=== PATIENT | female | born 1965 | race Caucasian/White ===

== ENCOUNTER 2017-02-16 07:07 | Emergency (ER) | payer SELFPAY ==
[2017-02-16 08:05] LABS: BASOPHILS 0.5 % (0.0-2.0); EOSINOPHILS 3.1 % (0-7); HEMATOCRIT 39.1 % (36.0-48.0); HEMOGLOBIN 12.6 g/dL (12-16); IMMATURE GRANULOCYTES 0.1 % (0-5); LYMPHOCYTES 34.4 % (15-50); MCH 26.7 pg (26.0-34.0); MCHC 32.2 g/dL (31.0-37.0); MCV 82.8 fL (80.0-100.0); MONOCYTES 5.9 % (2-11); RBC 4.72 10x6/uL (4.00-5.40); RDW 15.2 % (11.5-14.5)
[2017-02-16 08:11] LABS: PLATELET COUNT 292 10x3/uL (130-400)
[2017-02-16 08:22] LABS: APPEARANCE CLEAR (CLEAR); BILIRUBIN NEGATIVE (NEGATIVE); COLOR STRAW (YELLOW); GLUCOSE NEGATIVE (NEGATIVE); KETONE NEGATIVE (NEGATIVE); LEUKOCYTE ESTERASE 1+ (NEGATIVE); NITRITE NEGATIVE (NEGATIVE); PROTEIN NEGATIVE (NEGATIVE); UROBILINOGEN NORMAL (NORMAL)
[2017-02-16 08:23] LABS: BACTERIA FEW /hpf (NONE SEEN); EPITHELIAL CELLS 0-5 /hpf (0-5); RED CELLS - URINE 0-5 /hpf (0-5); WHITE CELLS - URINE 0-5 /hpf (0-5)
[2017-02-16 08:25] LABS: ALBUMIN 3.6 g/dL (3.4-5.0); ALKALINE PHOSPHATASE 95 U/L (46-116); ALT (SGPT) 30 U/L (10-68); BILIRUBIN - TOTAL 0.36 mg/dL (0.2-1.3); CALC OSMOLALITY 284 mosm/kg (275-300); CALCIUM 8.9 mg/dL (8.5-10.1); CARBON DIOXIDE 29.6 mmol/L (21.0-32.0); CHLORIDE - SERUM 107 mmol/L (98-107); CREATININE - SERUM 1.1 mg/dL (0.6-1.3); GLUCOSE 100 mg/dL (74-106); POTASSIUM - SERUM 3.7 mmol/L (3.5-5.1); PROTEIN - SERUM 7.5 g/dL (6.4-8.2); SODIUM 143 mmol/L (136-145); UREA NITROGEN 12 mg/dL (7-18); eGFR NON AFRICAN AMERICAN 55 mL/min (90-120)
[2017-02-16 08:35] LABS: CHOL - HDL RATIO 3.4 ratio (2.3-4.1); CHOLESTEROL, TOTAL 172 mg/dL (0-200); CKMB 0.7 U/L (0.0-3.6); CREATINE KINASE 57 UL (21-215); HDL CHOLESTEROL 50 mg/dL (32-96); LDL CHOLESTEROL 111 mg/dL (0-100); LDL-HDL RATIO 2.2 ratio (1.5-3.5); TRIGLYCERIDE 59 mg/dL (30-200); TROPONIN-I 0.022 ng/mL (0.000-0.060)
== END 2017-02-16 09:05 | disposition home or self-care (01) ==
LOC: D.ER 07:07
PROVIDERS: Emergency Medicine
DX: I10 Essential (primary) hypertension (principal); I25.10 Atherosclerotic heart disease of native coronary artery without angina pectoris

== ENCOUNTER 2019-05-21 22:04 | Observation (INO) | payer MEDICAID ==
[~2019-05-21] VITALS: Ht 162.6 cm; Wt 44.5 kg
--- NOTE | ~2019-05-21 | HEMODYNAMI ---
PATIENT:ERICA BREEN MEDICAL RECORD: [id number] : 63 [address] [id number] ADMISSION DATE: 05/21/19 Generatedon:05/22/201913:50 Patient name: ERICA BREEN Patient #: [id number] SSN: : 1965 Date of study: 05/22/2019 Page: Of Hemodynamic Procedure Report Patient Data Patient Demographics Procedure consent was obtained First Name: ERICA Gender: Female Last Name: JAMSHID : 1965 Patient #: [id number] Age: 53 year(s) Race: Unknown Additional ID: [id number] Contact details Address: [address] [place] [address] State: [place] City: [place] Zip code: [address] Past Medical History Allergies: No allergy information Admission Admission Data Admission Date: 05/21/2019 Admission Time: 23:49 Room #: [facility] Height (in.): 64 BSA: 2.22 (m2) Height (cm.): 162.56 BMI: 46.17 (kg/m2) Weight (lbs.): 268.97 Weight (kg.): 122 Lab Results Lab Result Date: 05/22/2019 Lab Result Time: 0:00 Biochemistry Name Units Result Min Max BUN mg/dl 17 --(---*)-- 7 18 Creatinine mg/dl 1 --(--*-)-- 0.6 1.3 CBC Name Units Result Min Max Hematocrit % 40.9 -*(----)-- 42 54 Hemoglobin g/dl 13.4 -*(----)-- 13.5 17.5 Procedure Procedure Types Cath Procedure Diagnostic Procedure C [facility] w/Coronaries Procedure Description Procedure Date Procedure Date: 05/22/2019 Procedure Start Time: 13:38 Procedure End Time: 13:47 Procedure Staff Name Function Zeke Elizondo MD Performing Physician Candy Meadows RT Monitor Berenice Ty RT Scrub Beth Jackson RN Nurse Alec Whitt RN Nurse Procedure Data Cath Procedure Fluoroscopy Diagnostic fluoroscopy Total fluoroscopy Time: 1 time: 1 min min Diagnostic fluoroscopy Total fluoroscopy dose: 433 dose: 433 mGy mGy Contrast Material Contrast Material Type Amount (ml) Isovue 300 46 Entry Location Entry Primary Successful Side Size Upsize Upsize Entry Closure Succes sful Closure Location (Fr) 1 (Fr) 2 (Fr) Remarks Device Remarks Femoral Right 5 Fr Exoseal artery Estimated blood loss: 5 ml Diagnostic catheters Device Type Used For End Catheter Placement MULTIPACK JL 4.0 5Fr Procedure catheter MULTIPACK 3DRC 5Fr Procedure catheter MULTIPACK Pigtail 5 Fr Procedure catheter Procedure Complications No complications Procedure Medications Medication Administration Route Dosage 0.9% NaCl I.V. 100 ml/hr Oxygen etCO2 Nasal cannula 2 l/min Lidocaine 2% added to field 20 Heparin Flush Bag added to field 2 bags (1000units/500ml NS) Versed I.V. 2 mg Fentanyl I.V. 50 mcg Versed I.V. 1 mg Hemodynamics Rest BSA: 2.22 (m2) HGB: 13.4 (g/dl) O2 Consumption: Estimated: 201.58 (ml/min) O2 Co nsumption indexed: Estimated:90.8 (ml/min/m) Heart Rate: 55 (bpm) Pressure Samples Time Site Value (mmHg) Purpose Heart Use Rate(bpm) 13:42 LV 154/18,17 Snapshot 60 13:43 AO 167/89(99) Pullback 47 13:43 LV 163/14,36 Pullback 47 Gradients Valve Time Site 1 Site 2 Mean SEP/DFP Peak To Heart Use (mmHg) (sec/min) Peak Rate (mmHg) (bpm) Aortic 13:43 LV AO 0 9 0 47 163/14,36 167/89(99) Calculations Valve P-P Mean Valve Index Valve Source Name Gradient Area Flow (cm2) Aortic 0 0 0 0 Snapshots Pre Cath Intra NCS Post Cath Vital Signs Time Heart Resp SPO2 etCO2 NIBP (mmHg) Rhythm Pain Sedation Rate (ipm) (%) (mmHg) Status Level (bpm) 13:14:47 53 22 98 38 185/104(132) SB 0 (11) 10(A) , No pain 13:19:15 55 20 99 40.3 160/89(141) SB 0 (11) 10(A) , No pain 13:23:35 49 13 94 29.1 150/90(124) SB 0 (11) 10(A) , No pain 13:28:51 48 15 97 33.6 150/85(108) SB 0 (11) 10(A) , No pain 13:34:00 43 14 96 32 142/87(98) SB 0 (11) 10(A) , No pain 13:39:11 46 13 95 36.5 164/90(111) SB 0 (11) 9(A) , No pain 13:43:31 50 14 96 38 164/88(136) SB 0 (11) 9(A) , No pain 13:46:56 46 13 97 37.2 155/84(125) SB 0 (11) 9(A) , No pain Medications Time Medication Route Dose Verified Delivered Reason Notes Eff ectiveness by by 13:13:34 0.9% NaCl I.V. 100 Zeke Beth used for ml/hr [facility] procedure MD MIXON 13:13:41 Oxygen etCO2 2 Zeke Beth used for Nasal l/min Mikhail Manuel procedure cannula MD MIXON 13:13:46 Lidocaine 2% added 20ml Zeke Astorgaory for local to vial [facility] anesthetic field MD ROSARIO 13:13:50 Heparin Flush added 2 Zeke Zeke used for Bag to bags [facility] procedure (1000units/500ml field MD ROSARIO NS) 13:36:05 Fentanyl I.V. 50 Ze[address] Elisaie for mcg [facility] Whitt RN sedation 13:36:59 Versed I.V. 2 mg Zeke Pérezie for [facility] Whitt RN sedation 13:40:11 Versed I.V. 1 mg Zeke Michael for [facility] Whitt RN sedation Procedure Log Time Note 12:55:40 Beth Jackson RN sent for patient. Start room use. 13:01:56 Signed procedure consent form obtained from patient. 13:01:58 Diagnostic Cath status Elective 13:01:59 Time tracking: Regular hours (M-F 7:00 - 5:00) 13:02:02 Plan of Care:Hemodynamics will remain stable., Cardiac rhythm will remain stable., Comfort level will be maintained., Respiratory function will remain adequate., Patient/ family verbilizes understanding of procedure., Procedure tolerated without complication., Recovers from procedure without complications.. 13:02:12 Patient Weight : 268.97 lbs 13:02:16 Patient Height : 64 inches 13:02:42 Patient allergic to No allergy information 13:03:12 Lab Result : BUN 17 mg/dl 13:03:12 Lab Result : Creatinine 1 mg/dl 13:03:12 Lab Result : Hemoglobin 13.4 g/dl 13:03:12 Lab Result : Hematocrit 40.9 % 13:06:42 Patient received from Med II to CCL 1 Alert and oriented. Tansferred to table in Supine position. 13:06:43 Warm blankets applied, and checo hugger turned on for patient comfort. 13:06:43 Correct patient and procedure confirmed by team. 13:06:44 ECG and BP/O2 sat monitors applied to patient. 13:13:21 Vital chart was started 13:13:34 0.9% NaCl 100 ml/hr I.V. was administered by Beth Jackson RN; used for procedure; 13:13:41 Oxygen 2 l/min etCO2 Nasal cannula was administered by Beth Jackson RN; used for procedure; 13:13:46 Lidocaine 2% 20ml vial added to field was administered by Zeke Elizondo MD; for local anesthetic; 13:13:50 Heparin Flush Bag (1000units/500ml NS) 2 bags added to field was administered by Zeke Elizondo MD; used for procedure; 13:15:36 Baseline sample Acquired. 13:15:40 Rhythm: sinus bradycardia 13:15:41 Full Disclosure recording started 13:15:42 Pre-procedure instructions explained to patient. 13:15:42 Pre-op teaching completed and patient verbalized understanding. 13:15:44 Family in patients room. 13:15:46 Patient NPO since Midnight. 13:15:48 Is patient on blood thinner?No 13:16:26 Patient diabetic? No. 13:16:29 Patient not . Patient has had hysterectomy. 13:16:31 Previous problem with sedation/anesthesia? No ? 13:16:35 Snore? Yes 13:16:36 Sleep apnea? No 13:16:39 Deviated septum? No 13:16:41 Opens mouth fully? Yes 13:16:42 Sticks out tongue? Yes 13:16:48 Airway obstruction? Yes ASTHMA\ 13:16:52 Dentures? No ? 13:16:55 Pre procedure: right dorsailis pedis pulse 1+ Palpable, but thready & weak; easily obliterated 13:16:57 Patient pain scale 0/10 ?. 13:17:09 IV patent on arrival in right antecubital with 0.9% [facility] at [facility]. 13:17:10 Lab results completed and on chart. 13:17:13 Right groin area was prepped with chlora-prep and draped in sterile fashion 13:17:45 RIGHT GROIN PREPPED PER 13:17:47 Alarms reviewed by R. N. 13:17:48 Sharps counted by scrub and verified by R.N. 13:17:51 Use device set Femoral Dx 13:17:52 ACIST Syringe (65751) opened to sterile field. 13:17:53 Bag Decanter (2002S) opened to sterile field. 13:17:54 ACIST Hand Control (22656) opened to sterile field. 13:17:54 ACIST Manifold (03138) opened to sterile field. 13:17:55 Tegaderm 4 x 4 (1626W) opened to sterile field. 13:17:58 Medline Cath Pack ([id number]) opened to sterile field. 13:17:58 DIAGNOSTIC WIRE .035 260cm J wire (161866) opened to sterile field. 13:17:59 DIAGNOSTIC Multipack 5Fr catheter set (AD5083) opened to sterile field. 13:18:00 SHEATH 5FR Harrington (HAW499) opened to sterile field. 13:29:13 Zero performed for pressure channel P1 13:33:40 Zero performed for pressure channel P1 13:35:17 --------ALL STOP TIME OUT------ 13:35:19 Right groin site verified by team. 13:35:22 Maximum allowable Isovue 300 dose 300ml. Physician notified. (300ml for normal creatinines. For patients with creatinine of 1.7 or higher multiply weight(kg) x 5 divided by creatinine.) 13:35:26 Fire Safety Assessment: A--An alcohol-based skin anteseptic being used preoperatively., C--Open oxygen or nitrous oxide is being used., D--An ESU, laser, or fiber-optic light is being used. 13:35:30 Physical assessment completed. ASA score P 2 - A patient with mild systemic disease as per Zeke Elizondo MD. 13:35:34 Sedation plan: IV Moderate Sedation Medication:Versed, Fentanyl 13:36:05 Fentanyl 50 mcg I.V. was administered by Alec Whitt RN; for sedation; 13:36:59 Versed 2 mg I.V. was administered by Alec Whitt RN; for sedation; 13:37:30 Procedure started. 13:38:09 Local anesthetic to right femoral artery with Lidocaine 2% by Zeke Elizondo MD.INITIAL ACCESS ONLY 13:38:57 A 5 Fr sheath was inserted into the Right Femoral artery 13:39:11 A MULTIPACK JL 4.0 5Fr catheter was advanced over the wire and used for Procedure. 13:40:11 Versed 1 mg I.V. was administered by Alec Whitt RN; for sedation; 13:40:14 LCA angiography performed. 13:40:38 Catheter removed. 13:40:44 A MULTIPACK 3DRC 5Fr catheter was advanced over the wire and used for Procedure. 13:41:32 RCA angiography performed. 13:41:33 Catheter removed. 13:41:37 EXOSEAL 5Fr (EX500) opened to sterile field. 13:42:31 A MULTIPACK Pigtail 5 Fr catheter was advanced over the wire and used for Procedure. 13:42:38 LV gram done using CABALLERO 13:42:40 Injector settings: Ml/sec: 10, Volume: 20, 13:42:59 LV hemodynamics recorded. 13:43:14 EF : 55 % 13:43:16 Catheter removed. 13:43:53 Sheath removed intact; hemostasis achieved with Exoseal to the Right Femoral artery. 13:44:03 Procedure ended.(Physican Out) 13:44:30 Fluoroscopy time 01.00 minutes. 13:44:34 Fluoroscopy dose: 433 mGy 13:44:34 Flurop Dose total: 433 13:44:37 Contrast amount:Isovue 300 46ml. 13:44:38 Sharps counted by scrub and verified by R.N. 13:44:44 Post-procedure physical assessment completed. ASA score P 2 - A patient with mild systemic disease as per Zeke Elizondo MD. 13:44:47 Post procedure rhythm: sinus bradycardia 13:44:49 Estimated blood loss: 5 ml 13:44:50 Post procedure instruction explained to patient.Patient verbalizes understanding. 13:44:51 Patient needs reinforcement of post procedure teaching. 13:45:25 Procedure and supply charges have been captured, reviewed, submitted and are correct. 13:45:32 Procedure Complication : No complications 13:46:57 Vital chart was stopped 13:46:58 See physician's report for complete and final results. 13:47:05 Report given to [facility]. 13:47:07 Patient transfered to [facility] with Bed. 13:47:12 Procedure ended. 13:47:12 Full Disclosure recording stopped 13:47:15 End room use (Document Last) Device Usage Item Name Manufacture Quantity Catalog Hospital Part Current Minimal L ot# / Number Charge Number Stock Stock Serial# Code ACIST Acist 1 13120 [id number] 745497 389092 20 Syringe Medical (09115) Systems Inc Bag Microtek 1 2001S 045894 13492 532048 5 Decanter Medical Inc. () ACIST Hand Acist 1 04888 342003 199267 848371 5 Control Medical (08919) Systems Inc ACIST Acist 1 48729 689077 227085 557724 5 Manifold Medical (68770) Systems Inc Tegaderm 4 3M 1 1626W 217514 233143 109905 5 x 4 (1626W) Medline Medline 1 [id number] 931544 10748 787629 5 Cath Pack ([id number]) DIAGNOSTIC [facility] 1 977168 506141 085252 044063 30 WIRE .035 260cm J wire (351782) DIAGNOSTIC Cardinal 1 RE4215 543082 42601 758261 30 Multipack Health 5Fr catheter set (BM0485) SHEATH 5FR Terumo 1 PEJ639 795655 246919 748025 5 Harrington (TKV648) MULTIPACK Cardinal 1 602494 5 JL 4.0 5Fr Health catheter MULTIPACK Cardinal 1 626351 5 3DRC 5Fr Health catheter EXOSEAL 5Fr Cardinal 1 EX500 325780 098142 572253 10 (EX500) Health MULTIPACK Cardinal 1 586562 5 Pigtail 5 Health Fr catheter Signature Audit [place] Stage Time Signature Unsigned Intra-Procedure 05/22/2019 Candy Meadows 1:50:21 PM RT(R) Signatures Monitor : Candy Abdiel Signature : RT Date : Time : [address] [place] [address]
[2019-05-21] MEDS ORDERED: LISINOPRIL-HCT1 EAC7 PO (22:29)
[2019-05-21 23:01] LABS: BASOPHILS 0.5 % (0-2); EOSINOPHILS 3.8 % (0-7); HEMATOCRIT 40.9 % (36.0-48.0); HEMOGLOBIN 13.4 g/dL (12-16); IMMATURE GRANULOCYTES 0.1 % (0-5); LYMPHOCYTES 38.5 % (15-50); MCHC 32.8 g/dL (31.0-37.0); MCV 82.5 fL (80.0-100.0); MEAN PLATELET VOLUME 10.5 fL (7.4-10.4); MONOCYTES 6.2 % (2-11); NEUTROPHILS 50.9 % (40-80); PLATELET COUNT 335 10x3/uL (130-400); RBC 4.96 10x6/uL (4.00-5.40); RDW 15.6 % (11.5-14.5); WBC 10.2 10x3/uL (4.8-10.8)
[2019-05-21 23:13] LABS: APTT 31.4 SECONDS (22.8-39.4); INR 0.98 (0.85-1.17); PROTIME 12.5 SECONDS (11.6-15.0)
[2019-05-21 23:20] LABS: ALBUMIN 3.5 g/dL (3.4-5.0); ALKALINE PHOSPHATASE 78 U/L (46-116); ALT (SGPT) 28 U/L (10-68); BILIRUBIN - TOTAL 0.15 mg/dL (0.2-1.3); CALC OSMOLALITY 291 mosm/kg (275-300); CALCIUM 8.9 mg/dL (8.5-10.1); CHLORIDE - SERUM 109 mmol/L (98-107); GLUCOSE 110 mg/dL (74-106); POTASSIUM - SERUM 3.5 mmol/L (3.5-5.1); PROTEIN - SERUM 8.1 g/dL (6.4-8.2); SODIUM 145 mmol/L (136-145); UREA NITROGEN 17 mg/dL (7-18); eGFR NON AFRICAN AMERICAN 61 mL/min (90-120)
[2019-05-21 23:30] LABS: CKMB 0.4 U/L (0.0-3.6); CREATINE KINASE 82 UL (21-215); MAGNESIUM - SERUM 2.1 mg/dL (1.8-2.4); TROPONIN-I < 0.017 ng/mL (0.000-0.060)
[2019-05-21 23:45] VITALS: BP 150/81
[2019-05-22 00:30] VITALS: BP 125/83
[2019-05-22] MEDS ORDERED: VITAMIN B-12250 MC3 INJ (01:29)
[2019-05-22] MEDS ORDERED: CATAPRES0.1 MG PO (01:31)
[2019-05-22 03:11] VITALS: BP 142/72; BMI 16.8
[2019-05-22 03:45] LABS: CKMB 0.4 U/L (0.0-3.6); CREATINE KINASE 68 UL (21-215); TROPONIN-I 0.021 ng/mL (0.000-0.060)
[2019-05-22 04:00] VITALS: BP 125/66
--- NOTE | 2019-05-22 08:08 | NUR ---
ALERT AND ORIENTED. TELEMERTY SHOWS SB 55. UNTIL SEEN BY DOCTOR SHE IS NPO. RIGHT AC SL. DENIES ANY NEEDS. SR UP WITH CALL LIGHT IN REACH
[2019-05-22 08:17] LABS: CKMB 0.4 U/L (0.0-3.6); CREATINE KINASE 64 UL (21-215); TROPONIN-I 0.027 ng/mL (0.000-0.060)
[2019-05-22 08:18] VITALS: BP 144/78
[2019-05-22] MEDS ORDERED: VITAMIN D250000 UNIT PO (08:23)
[2019-05-22] MEDS ORDERED: ALBUTEROL2.5 MG/3 M INH (08:24)
[2019-05-22] MEDS ORDERED: TOPAMAX50 MG (08:24)
[2019-05-22] MEDS ORDERED: WELLBUTRIN SR150 MG (08:25)
[2019-05-22] MEDS ORDERED: [UNRECOGNIZED DRUG - OTHER] IH (08:26)
[2019-05-22] MEDS ORDERED: TOPIRAMATE 25 MG (08:27)
[2019-05-22] MEDS ORDERED: ASPIRIN81 MG PO (08:28)
[2019-05-22 09:27] VITALS: Ht 162.6 cm; Wt 44.5 kg
[2019-05-22 09:43] LABS: BASOPHILS 0.7 % (0-2); HEMATOCRIT 37.5 % (36.0-48.0); HEMOGLOBIN 12.2 g/dL (12-16); IMMATURE GRANULOCYTES 0.1 % (0-5); LYMPHOCYTES 35.8 % (15-50); MCH 27.1 pg (26.0-34.0); MCHC 32.5 g/dL (31.0-37.0); MCV 83.3 fL (80.0-100.0); MONOCYTES 7.1 % (2-11); NEUTROPHILS 52.3 % (40-80); PLATELET COUNT 328 10x3/uL (130-400); RDW 15.7 % (11.5-14.5); WBC 8.7 10x3/uL (4.8-10.8)
[2019-05-22 10:18] LABS: ANION GAP 16.7 mmol/L (8-16); CALCIUM 8.6 mg/dL (8.5-10.1); CREATININE - SERUM 0.9 mg/dL (0.6-1.3); POTASSIUM - SERUM 3.7 mmol/L (3.5-5.1)
--- NOTE | 2019-05-22 11:09 | NUR ---
I have reviewed this patient and I concur with the Shift Assessment completed by the Licensed Practical Nurse today this shift.
[2019-05-22 11:51] VITALS: BP 132/70
[2019-05-22 12:46] LABS: CKMB 0.3 U/L (0.0-3.6); CREATINE KINASE 63 UL (21-215); TROPONIN-I 0.025 ng/mL (0.000-0.060)
--- NOTE | 2019-05-22 14:23 | NUR ---
back from seed laboratory assistant. V/S STABLE. RIGHT GROIN SOFT WITH DRSG DRY AND INTACT.PPP. TELEMERTY SHOWS SR. SR UP WITH CALL LIGHT IN REACH.WILL MONITOR
[2019-05-22 15:22] VITALS: BP 138/75
--- NOTE | 2019-05-22 17:16 | NUR ---
PT DCD. IV DCD WITH TIP INTACT. INSTRUCTIONS GIVEN TO PT AND FAMILY. RIGHT GROIN SOFT WITH DRSG DRY AND INTACT. TO PRIVATE CAR PER WHEELCHAIR
--- NOTE | 2019-05-25 15:06 | OP ---
PATIENT NAME: ERICA BREEN MEDICAL RECORD: [id number] :63 LOCATION:D.M2 D.2121 ADMISSION DATE:05/21/19 SURGEON: LILIA SANDS MD DATE OF OPERATION: 05/22/2019 PROCEDURE: Left heart catheterization, selective coronary angiography, right femoral approach. CATHETERS: A 5-Scottish sheath, 5/4 left and right Parrish, 5/4 pig. The procedure was well tolerated. The patient was returned to the marrufo. Sheath was removed. ExoSeal device placed. FINDINGS: Left ventriculography in 30-degree CABALLERO view. Normal wall motion and normal systolic function. CORONARY ANATOMY: LEFT MAIN: Left main is free of disease. LAD: Free of disease in the diagonal system. CIRCUMFLEX: Free of disease in the marginal system. RIGHT CORONARY ARTERY: Dominant artery, gives rise to PDA, free of disease. IMPRESSION: Normal LV systolic function. Normal coronary anatomy. TRANSINT:[id number] Voice Confirmation ID: [id number] DOCUMENT ID: [id number] LILIA SANDS MD at 1506 CC: [id number] DICTATION DATE: 05/22/19 1355 ART PSYCHOTHERAPIST OR THERAPIST: 05/22/19 1838 DIS IN 05/22/[address] [place] [address] [place] [address]
== END 2019-05-22 17:30 | disposition home or self-care (01) ==
LOC: D.ER 22:04 → OBSVTIME 23:49 → D.M2 23:49
PROVIDERS: Emergency Medicine; Internal Medicine Interventional Cardiology; ADMIT Internal Medicine Nephrology; ATTEND Internal Medicine Nephrology
DX: I20.9 Angina pectoris, unspecified (principal); I16.0 Hypertensive urgency; J45.909 Unspecified asthma, uncomplicated; R00.2 Palpitations

== ENCOUNTER 2020-01-25 13:19 | Inpatient (IN) | payer MEDICAID ==
[~2020-01-25] VITALS: Ht 162.6 cm; Wt 122.5 kg
[~2020-01-25 13:19] MED LIST: ALBUTEROL2.5 MG/3 M INH; ASPIRIN81 MG PO; CATAPRES0.1 MG PO; LISINOPRIL-HCT1 EAC7 PO; TOPAMAX50 MG; TOPIRAMATE 25 MG; VITAMIN B-12250 MC3 INJ; VITAMIN D250000 UNIT PO; WELLBUTRIN SR150 MG; [UNRECOGNIZED DRUG - OTHER] IH
[2020-01-25 13:53] LABS: BILIRUBIN NEGATIVE (NEGATIVE); GLUCOSE NEGATIVE (NEGATIVE); KETONE NEGATIVE (NEGATIVE); NITRITE NEGATIVE (NEGATIVE); SPECIFIC GRAVITY 1.015 (1.005-1.020); UROBILINOGEN NORMAL (NORMAL)
[2020-01-25 13:54] LABS: BASOPHILS 0.3 % (0-2); EOSINOPHILS 1.5 % (0-7); HEMATOCRIT 40.6 % (36.0-48.0); HEMOGLOBIN 13.4 g/dL (12-16); IMMATURE GRANULOCYTES 0.2 % (0-5); LYMPHOCYTES 20.4 % (15-50); MCH 27.1 pg (26.0-34.0); MONOCYTES 5.8 % (2-11); NEUTROPHILS 71.8 % (40-80); PLATELET COUNT 342 10x3/uL (130-400); RBC 4.95 10x6/uL (4.00-5.40); RDW 15.5 % (11.5-14.5); WBC 15.4 10x3/uL (4.8-10.8)
[2020-01-25 14:17] LABS: CALC OSMOLALITY 276 mosm/kg (275-300); CALCIUM 9.5 mg/dL (8.5-10.1); CARBON DIOXIDE 30.7 mmol/L (21.0-32.0); CHLORIDE - SERUM 99 mmol/L (98-107); GLUCOSE 103 mg/dL (74-106); POTASSIUM - SERUM 3.5 mmol/L (3.5-5.1); SODIUM 138 mmol/L (136-145); UREA NITROGEN 16 mg/dL (7-18); eGFR NON AFRICAN AMERICAN 61 mL/min (90-120)
[2020-01-25 14:26] LABS: ALBUMIN 3.8 g/dL (3.4-5.0); ALKALINE PHOSPHATASE 95 U/L (30-120); ALT (SGPT) 25 U/L (10-68); AMYLASE - SERUM 31 U/L (25-115); BILIRUBIN - TOTAL 0.53 mg/dL (0.2-1.3); LIPASE 123 U/L (73-393); PROTEIN - SERUM 8.2 g/dL (6.4-8.2); TROPONIN-I < 0.017 ng/mL (0.000-0.060)
[2020-01-25 17:09] VITALS: BP 168/65; BMI 46.4
--- NOTE | 2020-01-25 17:16 | NUR ---
PATIENT ADMITTED TO ROOM 2233. ADMISSION COMPLETE. DENIES NEEDS. WILL CONTINUE TO MONITOR.
[2020-01-25 19:30] VITALS: BP 154/64
--- NOTE | 2020-01-25 20:00 | NUR ---
ALERT RESTING IN BED, DENIES PAIN OR NEEDS AT THIS TIME, SEE SHIFT ASSESSMENT CALL LIGHT IN REACH
[2020-01-26] VITALS: BP 148/68
[2020-01-26 04:00] VITALS: BP 128/57
[2020-01-26 05:08] LABS: BASOPHILS 0.4 % (0-2); EOSINOPHILS 2.1 % (0-7); HEMATOCRIT 38.2 % (36.0-48.0); HEMOGLOBIN 12.1 g/dL (12-16); IMMATURE GRANULOCYTES 0.2 % (0-5); LYMPHOCYTES 26.6 % (15-50); MCH 26.2 pg (26.0-34.0); MCHC 31.7 g/dL (31.0-37.0); MCV 82.9 fL (80.0-100.0); MEAN PLATELET VOLUME 10.4 fL (7.4-10.4); MONOCYTES 6.5 % (2-11); NEUTROPHILS 64.2 % (40-80); PLATELET COUNT 336 10x3/uL (130-400); RBC 4.61 10x6/uL (4.00-5.40); RDW 15.3 % (11.5-14.5)
[2020-01-26 05:18] LABS: ALBUMIN 3.1 g/dL (3.4-5.0); ANION GAP 10.3 mmol/L (8-16); BILIRUBIN - TOTAL 0.64 mg/dL (0.2-1.3); CALCIUM 8.5 mg/dL (8.5-10.1); CARBON DIOXIDE 29.8 mmol/L (21.0-32.0); POTASSIUM - SERUM 3.1 mmol/L (3.5-5.1); PROTEIN - SERUM 7.5 g/dL (6.4-8.2)
[2020-01-26 05:30] LABS: WBC 9.2 10x3/uL (4.8-10.8)
--- NOTE | 2020-01-26 07:58 | NUR ---
SHE IS ALERT, ASKING FOR PAIN AND NAUSEA MED THIS MORNING. MEDS GIVEN. DENIES ANY NEW NEEDS.
[2020-01-26 08:30] VITALS: BP 131/54
[2020-01-26 13:03] VITALS: BMI 46.3
[2020-01-26 13:23] VITALS: BP 111/72
[2020-01-26 16:14] VITALS: BP 118/55
[2020-01-26 20:00] VITALS: BP 129/67
--- NOTE | 2020-01-26 20:00 | NUR ---
ALERT RESTING IN BED, DENIES PAIN OR NEEDS AT THSI TIME, SEE SHIFT ASSESSMENT CALL LIGHT IN REACH
[2020-01-26 20:41] VITALS: Ht 162.6 cm; Wt 122.5 kg
[2020-01-27] VITALS: BP 127/57
[2020-01-27 04:00] VITALS: BP 116/57
[2020-01-27 07:06] LABS: BASOPHILS 0.6 % (0-2); EOSINOPHILS 2.5 % (0-7); HEMATOCRIT 37.8 % (36.0-48.0); HEMOGLOBIN 11.8 g/dL (12-16); IMMATURE GRANULOCYTES 0.6 % (0-5); LYMPHOCYTES 32.7 % (15-50); MCH 26.6 pg (26.0-34.0); MCHC 31.2 g/dL (31.0-37.0); MONOCYTES 8.4 % (2-11); NEUTROPHILS 55.2 % (40-80); RBC 4.44 10x6/uL (4.00-5.40); RDW 15.6 % (11.5-14.5)
[2020-01-27 07:09] LABS: MCV 85.1 fL (80.0-100.0); PLATELET COUNT 180 10x3/uL (130-400); WBC 6.8 10x3/uL (4.8-10.8)
[2020-01-27 07:38] LABS: ANION GAP 11.1 mmol/L (8-16); CALCIUM 8.4 mg/dL (8.5-10.1); CARBON DIOXIDE 26.7 mmol/L (21.0-32.0); CREATININE - SERUM 0.9 mg/dL (0.6-1.3); MAGNESIUM - SERUM 2.2 mg/dL (1.8-2.4); POTASSIUM - SERUM 3.8 mmol/L (3.5-5.1)
[2020-01-27 08:04] VITALS: BP 139/67
--- NOTE | 2020-01-27 09:15 | NUR ---
FEELS A LITTLE "DIZZY" THIS MORNING. SHE STATES "IT'S GETTING BETTER". SHE STATES "THIS HAS HAPPENED BEFORE". EDUCATED HER ABOUT USING THE CALL LIGHT FOR HELP TO THE BATHROOM. SHE STATES "I WILL, CALL YOU". DENIES ANY OTHER NEEDS. STATES HER BELLY PAIN IS BETTER.
[2020-01-27 13:16] VITALS: BP 157/67
[2020-01-27 15:59] VITALS: BP 161/81
[2020-01-27 21:15] VITALS: BP 124/60
[2020-01-28 01:44] VITALS: BP 120/60
[2020-01-28 05:34] LABS: BASOPHILS 0.5 % (0-2); EOSINOPHILS 3.7 % (0-7); HEMATOCRIT 36.8 % (36.0-48.0); HEMOGLOBIN 11.4 g/dL (12-16); IMMATURE GRANULOCYTES 0.5 % (0-5); MCH 26.4 pg (26.0-34.0); MCV 85.2 fL (80.0-100.0); MEAN PLATELET VOLUME 11.2 fL (7.4-10.4); MONOCYTES 6.4 % (2-11); NEUTROPHILS 54.9 % (40-80); RBC 4.32 10x6/uL (4.00-5.40); RDW 15.4 % (11.5-14.5); WBC 6.1 10x3/uL (4.8-10.8)
[2020-01-28 05:35] LABS: ANION GAP 12.9 mmol/L (8-16); CALCIUM 8.2 mg/dL (8.5-10.1); CARBON DIOXIDE 25.9 mmol/L (21.0-32.0); MAGNESIUM - SERUM 1.7 mg/dL (1.8-2.4); POTASSIUM - SERUM 3.8 mmol/L (3.5-5.1)
[2020-01-28 05:37] LABS: PLATELET COUNT 268 10x3/uL (130-400)
[2020-01-28 06:48] VITALS: BP 130/60
--- NOTE | 2020-01-28 07:41 | NUR ---
PT LYING IN BED IV WENT BAD THIS MORNING, PT STATED SHE IS SUPPOSE TO BE D/C THIS MORNING, WILL HOLD OFF ON IV UNTIL FURTHER NOTICE ABOUT DC. PT VOICED NO NEEDS AT THIS TIME. CONTINUE WITH PLAN OF CARE
[2020-01-28 09:01] VITALS: BP 125/80
[2020-01-28] MEDS ORDERED: LEVAQUIN750 MG PO (09:34)
[2020-01-28] MEDS ORDERED: FLAGYL500 MG PO (09:34)
[2020-01-28] MEDS ORDERED: MIRALAX17 GM PO (09:35)
--- NOTE | 2020-01-28 10:14 | MORECARE ---
CASE MANAGEMENT DISCHARGE SUMMARY PATIENT: ERICA BREEN UNIT: [id number] ADM DATE: 01/25/20 AGE: 54 : 63 SEX: F ROOM/BED: D.2233 AUTHOR: AWA,DOC PHYSICIAN: REFERRING PHYSICIAN: IZZY DIAZ MD DATE OF SERVICE: 01/28/20 Discharge Plan Patient Name: ERICA BREEN Facility: [facility]:[place] : 1965 Planned Disposition: Home Anticipated Discharge Date: 01/28/20 Discharge Date: Expected LOS: 3 Initial Reviewer: [email or web address] Initial Review Date: 01/28/2020 Generated: 01/28/20 11:13 am Comments DCP- Discharge Planning Updated by [email or web address]: Jennifer Winkler on 01/28/20 9:[address] Patient Name: ERICA BREEN Admission Status: ER Accout number: [id number] Admission Date: 01-25-2020 : 1965 Admission Diagnosis: Attending: IZZY DIAZ Current LOS: 3 Anticipated DC Date: 01-28-2020 Planned Disposition: Home Primary Insurance: MEDICAID [place] PENDING Discharge Planning Comments: CM met with patient to complete initial dc planning assessment. CM educated patient on the CM role and verbal consent given by patient to complete assessment. Patient lives at home with son and 2 grand children. At discharge patient plans to return and feels this is a safe discharge. CM discussed availability of home health, rehab services, and medical equipment. Patient denied known discharge needs at this time. CM will continue to follow and will assist as needed with dc plans/needs. Welder Apprentice Gas: Jennifer Winkler DCPIA - Discharge Planning Initial Assessment Updated by [email or web address]: Jennifer Winkler on 01/28/20 10:12 am * Is the patient Alert and Oriented? Yes * How many steps to enter\exit or inside your home? 4/0 * PCP Mara Mathur in [place] * Pharmacy [facility] on [address] * Preadmission Environment Home with Family * ADLs Independent * Equipment None * List name and contact numbers for known caregivers / representatives who currently or will assist patient after discharge: Nunu Ricks - mother - [phone] * Verbal permission to speak to the caregivers and representatives has been obtained from the patient. Yes * Community resources currently utilized None * Additional services required to return to the preadmission environment? No * Can the patient safely return to the preadmission environment? Yes * Has this patient been hospitalized within the prior 30 days at any hospital? No Patient Name: ERICA BREEN Page 41083 at 1014 All edits/amendments must be made on the electronic document DICTATION DATE: 01/28/20 1013 FUEL TESTING TECHNICIAN: SINCERE 01/28/20 1013 RPT#: [id number] DC DATE: STATUS: ADM IN [facility] [address] [place] [address] END OF REPORT
--- NOTE | 2020-01-28 11:47 | NUR ---
I have reviewed this patient and I concur with the Shift Assessment completed by the Licensed Practical Nurse today this shift.
--- NOTE | 2020-01-28 12:14 | NUR ---
WENT OVER DC PAPERWORK WITH PT, ALL QUESTIONS ANSWERED PT AMBULATORY, REFUSED WC, WALKED PT DOWN TO FRONT DOOR
--- NOTE | 2020-02-01 09:23 | MORECARE ---
CASE MANAGEMENT DISCHARGE SUMMARY PATIENT: ERICA BREEN UNIT: [id number] ADM DATE: 01/25/20 AGE: 54 : 63 SEX: F ROOM/BED: D.2233 AUTHOR: AWA,DOC PHYSICIAN: REFERRING PHYSICIAN: IZZY DIAZ MD DATE OF SERVICE: 02/01/20 Discharge Plan Patient Name: ERICA BREEN Facility: [facility]:[place] : 1965 Planned Disposition: Home Anticipated Discharge Date: 01/28/20 Discharge Date: 01/28/2020 Expected LOS: 3 Initial Reviewer: [email or web address] Initial Review Date: 01/28/2020 Generated: 02/01/20 10:22 am Comments DCP- Discharge Planning Updated by [email or web address]: Jennifer Winkler on 01/28/20 9:[address] Patient Name: ERICA BREEN Admission Status: ER Accout number: [id number] Admission Date: 01-25-2020 : 1965 Admission Diagnosis: Attending: IZZY DIAZ Current LOS: 3 Anticipated DC Date: 01-28-2020 Planned Disposition: Home Primary Insurance: MEDICAID [place] PENDING Discharge Planning Comments: CM met with patient to complete initial dc planning assessment. CM educated patient on the CM role and verbal consent given by patient to complete assessment. Patient lives at home with son and 2 grand children. At discharge patient plans to return and feels this is a safe discharge. CM discussed availability of home health, rehab services, and medical equipment. Patient denied known discharge needs at this time. CM will continue to follow and will assist as needed with dc plans/needs. Simplex Printer Installer: Jennifer Winkler DCPIA - Discharge Planning Initial Assessment Updated by [email or web address]: Jennifer Winkler on 01/28/20 10:12 am * Is the patient Alert and Oriented? Yes * How many steps to enter\exit or inside your home? 4/0 * PCP Mara Mathur in [place] * Pharmacy [facility] on [address] * Preadmission Environment Home with Family * ADLs Independent * Equipment None * List name and contact numbers for known caregivers / representatives who currently or will assist patient after discharge: Nunu Ricks - [facility] - [phone] * Verbal permission to speak to the caregivers and representatives has been obtained from the patient. Yes * Community resources currently utilized None * Additional services required to return to the preadmission environment? No * Can the patient safely return to the preadmission environment? Yes * Has this patient been hospitalized within the prior 30 days at any hospital? No Last DP export: 01/28/20 9:14 a Patient Name: ERICA BREEN Page [phone] at 0923 All edits/amendments must be made on the electronic document DICTATION DATE: 02/01/20921 TIRE CARE MANAGER: SINCERE 02/01/20921 RPT#: [id number] DC DATE:01/28/20 STATUS: DIS IN [facility] [address] [place] [address] END OF REPORT
== END 2020-01-28 12:15 | disposition home or self-care (01) | DRG 392 ==
LOC: D.ER 13:19 → D.MS 16:11
PROVIDERS: Family Medicine; ADMIT Internal Medicine Nephrology; ATTEND Internal Medicine Nephrology
DX: K57.32 Diverticulitis of large intestine without perforation or abscess without bleeding (principal); M79.7 Fibromyalgia; I10 Essential (primary) hypertension; G62.9 Polyneuropathy, unspecified; J45.909 Unspecified asthma, uncomplicated; E87.6 Hypokalemia